=== PATIENT | female | born 1945 | race Caucasian/White ===

== ENCOUNTER 2018-04-09 10:42 | Day surgery (SDC) | payer MEDICARE ==
[2018-04-08 16:36] LABS: BASOPHILS % (AUTO) 0.2 % (0-1); EOSINOPHILS # (AUTO) 0.1 X10'3 (0-0.9); EOSINOPHILS % (AUTO) 1.3 % (0-6); LYMPHOCYTES # (AUTO) 1.2 X10'3 (1.1-4.8); LYMPHOCYTES % (AUTO) 18.4 % (21-51); MEAN CORPUSCULAR HEMOGLOBIN 27.7 PG (27.0-31.0); MEAN CORPUSCULAR HGB CONC 33.1 % (33.0-36.5); MEAN CORPUSCULAR VOLUME 83.7 FL (78-98); MEAN PLATELET VOLUME 6.4 FL (7.4-10.4); MONOCYTES # (AUTO) 0.4 X10'3 (0-0.9); MONOCYTES % (AUTO) 5.4 % (2-12); NEUTROPHILS % (AUTO) 74.7 % (42-75); PRE OP HEMATOCRIT 31.1 % (35.0-45.0); PRE OP PLATELET COUNT 295 X10'3 (140-440); RED BLOOD COUNT 3.72 X10'6 (4.20-5.60); RED CELL DISTRIBUTION WIDTH 16.4 % (11.5-14.5)
[2018-04-08 16:44] LABS: PRE OP HEMOGLOBIN 10.3 g/dL (12.0-16.0)
[2018-04-08 16:53] LABS: ALBUMIN 3.5 G/DL (3.4-5.0); ALBUMIN/GLOBULIN RATIO 0.9 (1.1-1.5); ALKALINE PHOSPHATASE 66 IU/L (46-116); BLOOD UREA NITROGEN 21 MG/DL (7-18); BUN/CREATININE RATIO 18.4 (6.6-38.0); CALCIUM 8.7 MG/DL (8.5-10.1); CHLORIDE 103 MMOL/L (99-107); CREATININE 1.14 MG/DL (0.40-0.90); PRE OP ALT 21 U/L (30-65); PRE OP ANION GAP 9 (8-16); PRE OP AST 20 U/L (10-37); PRE OP BILIRUB, TOTAL 0.4 MG/DL (0.0-1.0); PRE OP GLUCOSE 93 MG/DL (70-104); PRE OP SODIUM 142 MMOL/L (135-145); TOTAL CARBON DIOXIDE 29.9 MMOL/L (24-32); TOTAL PROTEIN 7.3 G/DL (6.4-8.2); eGFR 47 ML/MIN
[2018-04-08 16:56] LABS: PRE OP POTASSIUM 3.2 MMOL/L (3.4-5.1)
[2018-04-08 17:06] LABS: PRE OP PROTIME 10.1 SECONDS (9.0-12.0)
[~2018-04-09] VITALS: Ht 154.9 cm; Wt 77.1 kg
[2018-04-09] VITALS (9 sets, daily range): BP systolic 115–140; BP diastolic 70–91
[~2018-04-09 10:42] MED LIST: ASPI-1071 PO; BUDE180A IH; BUTA1TAB54 PO; CALC0.5C11 PO; CYAN1TAB7 SL; MELO-102 PO; METO-384 PO; OMEP40CA37 PO; ROPI0.5T2 PO; ROPIVAcaine 0.5% (5mg/ml) 30ml vial ONE; ZOLP10TA PO; acetaminophen 325mg tablet PO ONE; cefazolin/dext.iso 2gm/100 ML IV ONE; cefazolin/dext.iso 2gm/50ml 100 ML IV ONE; celeCOXIB 100mg capsule PO ONE; famotidine 20mg tablet PO ONE; gabapentin 300mg capsule PO ONE; metoclopramide 5 mg/ml inj IV ONE; oxyCODONE SR 10mg (sust. release) tab -2 tabs (20mg) PO ONE; ringers solution, lacted 1,000 ML IV SCH; vancomycin inj 1,500 MG in normal saline 300ml IV soln IV ONE
[2018-04-09 12:46] LABS: ISTAT HGB 11.2 g/dl (12.0-16.0); ISTAT IONIZED CALCIUM 1.09 mmol/L (1.03-1.32); ISTAT K 3.6 mmol/L (3.5-5.1)
[2018-04-09] MEDS ORDERED: scopolamine 1.5mg patch.TD72 TD ONE (12:50)
[2018-04-09] MEDS ORDERED: sevoflurane 250ml liquid IH ONE (12:57)
[2018-04-09] MEDS ORDERED: propofol inj 20 ML IV ONE (13:01)
[2018-04-09] MEDS ORDERED: dexamethasone sod phosphate 4mg/ml inj. ONE (13:01)
[2018-04-09] MEDS ORDERED: fentaNYL/PF 50MCG/1 ML 2ML syringe ONE (13:01)
[2018-04-09] MEDS ORDERED: LIDOcaine 2% (20mg/ml) 5ml vial ONE (13:01)
[2018-04-09] MEDS ORDERED: ondansetron/PF 4mg/2ml inj ONE (13:01)
[2018-04-09] MEDS ORDERED: midazolam 2 mg/2 ml injection ONE (13:01)
[2018-04-09] MEDS ORDERED: ringers solution, lacted 1,000 ML IV SCH (13:51)
[2018-04-09] MEDS ORDERED: ondansetron/PF 4mg/2ml inj IV PRN (13:55)
[2018-04-09] MEDS ORDERED: hydrALAZINE 20mg/ml inj. IV PRN (13:55)
[2018-04-09] MEDS ORDERED: fentaNYL/PF 50MCG/1 ML 2ML syringe IV PRN ×2 (13:55)
[2018-04-09] MEDS ORDERED: enalaprilat dihydrate 2.5mg/2ml vial IV PRN (13:55)
[2018-04-09] MEDS ORDERED: morphine 4 MG/ML inj SYRINge IV PRN ×2 (13:55)
== END 2018-04-09 15:57 | disposition home or self-care (01) ==
LOC: PAS 10:42
PROVIDERS: ATTEND Orthopaedic Surgery
DX: S82.031A Displaced transverse fracture of right patella, initial encounter for closed fracture (principal); G89.18 Other acute postprocedural pain; E89.0 Postprocedural hypothyroidism; J45.998 Other asthma; E66.9 Obesity, unspecified; N18.3 Chronic kidney disease, stage 3 (moderate); M19.90 Unspecified osteoarthritis, unspecified site; K21.9 Gastro-esophageal reflux disease without esophagitis; Z79.82 Long term (current) use of aspirin; Z68.32 Body mass index [BMI] 32.0-32.9, adult; Z86.79 Personal history of other diseases of the circulatory system; Z79.891 Long term (current) use of opiate analgesic; Z90.49 Acquired absence of other specified parts of digestive tract; Z90.722 Acquired absence of ovaries, bilateral; Z87.891 Personal history of nicotine dependence; Z86.69 Personal history of other diseases of the nervous system and sense organs; Z79.899 Other long term (current) drug therapy; Z88.8 Allergy status to other drugs, medicaments and biological substances; Z98.890 Other specified postprocedural states; W19.XXXA Unspecified fall, initial encounter; Y93.89 Activity, other specified; Y92.094 Garage of other non-institutional residence as the place of occurrence of the external cause; Y99.8 Other external cause status
CPT/HCPCS: 27524; 36415; 64447; 73560; 76000; 80047; 80053; 85025; 85610; 85730; 93005; A6222; A6449; C1713; J0690; J1100; J2001; J2250; J2405; J2704; J2765; J3010; J3370; J7120; A7000; J2795